=== PATIENT | male | born 1975 | race African-American/Black ===

== ENCOUNTER 2016-09-21 12:01 | Emergency (ER) | payer BC, OTHER ==
[~2016-09-21] VITALS: Ht 177.8 cm; Wt 95.3 kg
[~2016-09-21 12:01] MED LIST: APAP500 PO; ASPIR 8181 MG; ASPIRIN325 PO; BYSTOLIC 5 MG5 M1; BYSTOLIC 5 MG5 M1 PO; FISH OIL500 M2; IMDUR 30 MG TAB30 M1 PO; LIPITOR10 MG PO; NAPROSYN500 MG PO; ONE DAILY FOR1 EACH PO; PLAVIX 75 MG TA75 M1 PO; TOPROL XL25 MG PO; TRAMADOL 50 MG50 MG PO; VITAMIN E400 UNIT PO
[2016-09-21] MEDS ORDERED: TOPROL XL25 MG PO (12:16)
[2016-09-21 12:42] LABS: HEMOGLOBIN 15.1 gm/dL (14.0-18.0); MCH 28.8 pg (26.0-34.0); MCHC 33.5 % (28.0-37.0); PLATELET COUNT 154 thou/uL (150-400); RBC 5.23 mil/uL (4.50-6.00); RDW 13.8 % (10.5-14.5)
[2016-09-21 12:44] LABS: CALCIUM 8.6 mg/dL (8.5-10.1); CREATININE 1.1 mg/dL (0.6-1.3); POTASSIUM 3.7 mmol/L (3.5-5.1)
[2016-09-21 12:49] LABS: ALBUMIN 3.9 g/dL (3.4-5.0); TOTAL BILIRUBIN 1.3 mg/dL (<0.1-1.0)
[2016-09-21 12:57] LABS: MANUAL DIFF YES
[2016-09-21] MEDS ORDERED: BENTYL 20 MG TA20 M1 PO (13:08)
[2016-09-21 13:25] LABS: ABSOLUTE NEUTROPHILS 2.3 thou/uL (1.4-8.2); POIKILOCYTOSIS 1+; TOTAL CELL COUNT 100
[2016-09-21 13:49] LABS: URINE BILIRUBIN NEGATIVE (Negative); URINE BLOOD NEGATIVE (Negative); URINE COLOR YELLOW; URINE GLUCOSE-RANDOM* NEGATIVE (Negative); URINE KETONES NEGATIVE (Negative); URINE LEUKOCYTES-REFLEX NEGATIVE (Negative); URINE PROTEIN (DIPSTICK) NEGATIVE (Negative); URINE UROBILINOGEN 0.2 E.U./dl (0.2-1.0)
[2016-09-21 14:14] VITALS: BP 126/83
== END 2016-09-21 14:21 | disposition home or self-care (01) ==
LOC: ER 12:01
PROVIDERS: Emergency Medicine
DX: R19.7 Diarrhea, unspecified (principal); I10 Essential (primary) hypertension; Z86.79 Personal history of other diseases of the circulatory system; I25.2 Old myocardial infarction; Z88.6 Allergy status to analgesic agent; Z88.1 Allergy status to other antibiotic agents; Z88.5 Allergy status to narcotic agent; F10.99 Alcohol use, unspecified with unspecified alcohol-induced disorder

== ENCOUNTER 2017-03-15 12:50 | Emergency (ER) | payer OTHER ==
[~2017-03-15] VITALS: Ht 185.4 cm; Wt 99.8 kg
[~2017-03-15 12:50] MED LIST changes: +BENTYL 20 MG TA20 M1 PO
[2017-03-15 13:24] LABS: HEMOGLOBIN 15.2 gm/dL (14.0-18.0); MANUAL DIFF YES; MCH 28.8 pg (26.0-34.0); MCHC 33.1 g/dL (28.0-37.0); PLATELET COUNT 164 thou/uL (150-400); RBC 5.29 mil/uL (4.50-6.00); RDW 13.7 % (10.5-14.5)
[2017-03-15 13:35] LABS: CALCIUM 8.9 mg/dL (8.5-10.1); CREATININE 0.9 mg/dL (0.7-1.3); POTASSIUM 3.5 mmol/L (3.5-5.1)
[2017-03-15 13:39] LABS: DIRECT BILIRUBIN 0.2 mg/dL (<0.1-0.3); TOTAL PROTEIN 8.2 g/dL (6.4-8.2)
[2017-03-15 14:02] LABS: URINE BILIRUBIN NEGATIVE (Negative); URINE BLOOD NEGATIVE (Negative); URINE COLOR YELLOW; URINE GLUCOSE-RANDOM* NEGATIVE (Negative); URINE KETONES NEGATIVE (Negative); URINE NITRITE NEGATIVE (Negative); URINE PROTEIN (DIPSTICK) NEGATIVE (Negative); URINE SPECIFIC GRAVITY 1.015 (1.003-1.035); URINE UROBILINOGEN 0.2 E.U./dl (0.2-1.0)
[2017-03-15] MEDS ORDERED: CIPROFLOXACIN500 M1 PO (14:20)
[2017-03-15 14:38] VITALS: BP 123/76
[2017-03-15 14:41] LABS: ABSOLUTE NEUTROPHILS 1.3 thou/uL (1.4-8.2); ATYPICAL LYMPHS 4 %; TOTAL CELL COUNT 100
[2017-03-15 14:42] LABS: LARGE PLATELETS OCCASIONAL
== END 2017-03-15 14:35 | disposition home or self-care (01) ==
LOC: ER 12:50
PROVIDERS: Emergency Medicine
DX: K62.5 Hemorrhage of anus and rectum (principal); R19.7 Diarrhea, unspecified; D72.819 Decreased white blood cell count, unspecified; I25.10 Atherosclerotic heart disease of native coronary artery without angina pectoris; I10 Essential (primary) hypertension; I25.2 Old myocardial infarction; F10.99 Alcohol use, unspecified with unspecified alcohol-induced disorder; Z88.5 Allergy status to narcotic agent; Z88.8 Allergy status to other drugs, medicaments and biological substances

== ENCOUNTER 2017-11-16 08:19 | Emergency (ER) | payer OTHER ==
[~2017-11-16] VITALS: Ht 180.3 cm; Wt 83.9 kg
--- NOTE | ~2017-11-16 | EKG ---
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1975 Requested By: Duong Woods Order Number: [id number] MD: Marty Reinoso Measurements Intervals [place] Rate: 99 P: 50 NC: 148 QRS: -25 QRSD: 106 T: 36 QT: 362 QTc: 465 Interpretive Statements Sinus rhythm Left ventricular hypertrophy Compared to ECG 10/30/2016 05:10:28 Left ventricular hypertrophy now present Right ventricular hypertrophy no longer present Electronically Signed On 11-16-2017 10:25:42 SERVICE CORRESPONDENT by Marty Reinoso [email or web address] <ELECTRONICALLY SIGNED> By: Marty Reinoso MD 11/16/17 1025 D: [id number] 4 Marty Reinoso MD /MARIA ISABEL
[~2017-11-16 08:19] MED LIST changes: +CIPROFLOXACIN500 M1 PO
[2017-11-16] MEDS ORDERED: ALEVE220 MG PO (09:22)
[2017-11-16 09:31] LABS: AMP/METHAMP Negative (Negative); BARBITURATES Negative (Negative); BENZODIAZEPINES Negative (Negative); COCAINE Negative (Negative); METHADONE Negative (Negative); OPIATES Negative (Negative); PCP Negative (Negative)
[2017-11-16 09:48] VITALS: BP 129/81
== END 2017-11-16 09:49 | disposition home or self-care (01) ==
LOC: ER 08:19
PROVIDERS: Emergency Medicine
DX: R68.84 Jaw pain (principal); I10 Essential (primary) hypertension; I25.10 Atherosclerotic heart disease of native coronary artery without angina pectoris; I21.9 Acute myocardial infarction, unspecified; Z88.5 Allergy status to narcotic agent; Z88.8 Allergy status to other drugs, medicaments and biological substances

== ENCOUNTER 2019-01-19 07:06 | Inpatient (IN) | payer OTHER ==
[~2019-01-19] VITALS: Ht 177.8 cm; Wt 105.2 kg
[2019-01-19] VITALS (9 sets, daily range): BP systolic 91–124; BP diastolic 55–83
[~2019-01-19 07:06] MED LIST changes: +ALEVE220 MG PO
[2019-01-19 07:44] LABS: HEMATOCRIT 49.1 % (42.0-52.0); HEMOGLOBIN 16.2 gm/dL (14.0-18.0); MCH 28.9 pg (26.0-34.0); MCHC 32.9 g/dL (28.0-37.0); MCV 87.6 fL (80.0-100.0); PLATELET COUNT 169 thou/uL (150-400); RDW 14.6 % (10.5-14.5); WBC 2.8 thou/uL (4.0-11.0)
[2019-01-19 07:53] LABS: ANION GAP 8 mmol/L (7-16); BUN 12 mg/dL (7-18); CALCIUM 9.4 mg/dL (8.5-10.1); CHLORIDE 105 mmol/L (98-107); CO2 29 mmol/L (21-32); CREATININE 1.1 mg/dL (0.7-1.3); GLUCOSE 133 mg/dL (74-106); POTASSIUM 3.7 mmol/L (3.5-5.1); SODIUM 142 mmol/L (136-145)
[2019-01-19 07:56] LABS: APTT 27.6 Seconds (24.5-32.8); INR 1.1; PROTIME 11.1 Seconds (9.3-11.4)
[2019-01-19 08:03] LABS: ALBUMIN 4.2 g/dL (3.4-5.0); SGOT 40 U/L (15-37); SGPT 71 U/L (30-65); TOTAL BILIRUBIN 0.7 mg/dL (<0.1-1.0); TOTAL PROTEIN 8.7 g/dL (6.4-8.2); TROPONIN-I <0.06 ng/mL (<0.06)
[2019-01-19 08:07] LABS: ABSOLUTE NEUTROPHILS 0.8 thou/uL (1.4-8.2); ATYPICAL LYMPHS 1 %
[2019-01-19 08:09] LABS: ANISOCYTOSIS SLIGHT
[2019-01-19] MEDS ORDERED: ASPIR 8181 MG PO (09:19)
--- NOTE | 2019-01-19 09:22 | EKG ---
[place] [address] [address] 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 : 1975 Requested By: Isela Armando Order Number: [id number] MD: Fracisco Lara Measurements Intervals [place] Rate: 177 P: MS: QRS: -4 QRSD: 96 T: 34 QT: 293 QTc: 503 Interpretive Statements Atrial fibrillation with rapid V-rate Nonspecific ST segment abnormality RSR' in V1 or V2, right VCD or RVH Compared to ECG 11/16/2017 09:05:59 Atrial fibrillation has replaced sinus rhythm Electronically Signed On 01-19-2019 9:22:51 CDT by Fracisco Lara [email or web address] ��������������������������������������������� <ELECTRONICALLY SIGNED> ���������������������������������������� By: Fracisco Lara MD, [facility] ��������������������������������������������� 01/19/19 0922 6 6 Fracisco Lara MD, [facility] /EPI
--- NOTE | 2019-01-19 13:21 | 2DMMODE ---
[facility] [place] [place] [address] 2 D/M-MODE ECHOCARDIOGRAM Name: LEONEL HER Room #: 217-P [facility] IN .#: [id number] ������������� Admission: 01/19/19 ������������� Attend Phys: Compa Carballo, Discharge: ��� ������������� ��� Date of : 73 Date of Service: 01/19/19 1320 �� Report #: [id number] �������� ��������������������������������������������[id number] THIS REPORT FOR: //name// APPROVED REPORT Study performed: 01/19/2019 12:33:01 EXAM: Comprehensive 2D, Doppler, and color-flow Echocardiogram Patient Location: Bedside Status: routine BSA: 2.15 HR: 91 bpm BP: 100/58 mmHg Rhythm: Atrial Fibrillation Other Information Study Quality: Excellent Indications Atrial Fibrillation Hx: NH, CAD, HTN. 2D Dimensions RVDd: 42.18 mm IVSd: 13.26 (7-11mm) LVOT Diam: 19.99 (18-24mm) LVDd: 46.17 mm PWd: 13.21 (7-11mm) Ascending Ao: 33.16 (22-36mm) LVDs: 29.49 (25-40mm) Aortic Root: 28.80 mm Volumes Left Atrial Volume (Systole) Single Plane 4CH: 95.05 mL Single Plane 2CH: 106.63 mL LA ESV Index: 50.00 mL/m2 LV Strain GL Strain(%): 0.00 Aortic Valve AoV Peak Julio Cesar.: 1.41 m/s AO Peak Gr.: 7.96 mmHg LVOT Max P.20 mmHg LVOT Max V: 0.89 m/s REJI Vmax: 1.99 cm2 [facility] [address] [place] [address] 2 D/M-MODE ECHOCARDIOGRAM Name: ARDENLEONEL Ba Room #: 217-P [facility] IN [facility]#: [id number] ������������� Admission: 01/19/19 ������������� Attend Phys: Compa Carballo, Discharge: ��� ������������� ��� Date of : 73 Date of Service: 01/19/19 1320 �� Report #: [id number] �������� ��������������������������������������������[id number] Mitral Valve MV Decel. Time: 97.77 ms MV E Max Julio Cesar.: 0.70 m/s Pulmonary Valve PV Peak Julio Cesar.: 0.69 m/s PV Peak Gr.: 1.90 mmHg Tricuspid Valve TR Peak Julio Cesar.: 1.90 m/s RAP Estimate: 10.00 mmHg TR Peak Gr.: 14.40 mmHg PA Pressure: 24.00 mmHg Left Ventricle The left ventricle is normal size. There is normal LV segmental wall motion. Mild concentric left ventricular hypertrophy. Left ventricular systolic function is normal. LVEF is 50-55%. This study is not technically sufficient to allow evaluation of the LV diastolic function due to atrial fibrillation. Right Ventricle The right ventricle is normal size. The right ventricular systolic function is normal. Atria Left atrium is severely dilated. The right atrium size is normal. Aortic Valve The aortic valve is normal in structure. Trace aortic regurgitation. There is no aortic valvular stenosis. Mitral Valve The mitral valve is normal in structure. Mild to moderate mitral regurgitation. Tricuspid Valve The tricuspid valve is normal in structure. Mild tricuspid regurgitation. Estimated PAP is 20-25mmHg. Pulmonic Valve The pulmonary valve is normal in structure. Mild pulmonic regurgitation. <Conclusion> The left ventricle is normal size. Mild concentric left ventricular hypertrophy. [facility] [place] [address] 2 D/M-MODE ECHOCARDIOGRAM Name: LEONEL HER Room #: 217-P [facility] IN M.R.#: [id number] ������������� Admission: 01/19/19 ������������� Attend Phys: Compa Carballo, Discharge: ��� ������������� ��� Date of : 73 Date of Service: 01/19/19 1320 �� Report #: [id number] �������� ��������������������������������������������[id number] LVEF is 50-55%. This study is not technically sufficient to allow evaluation of the LV diastolic function due to atrial fibrillation. The right ventricle is normal size. Left atrium is severely dilated. Trace aortic regurgitation. Mild to moderate mitral regurgitation. Mild tricuspid regurgitation. Estimated PAP is 20-25mmHg. ��������������������������������������������� <ELECTRONICALLY SIGNED> ���������������������������������������� By: Duong Woods MD, [facility] ��������������������������������������������� 01/19/19 132 132 1320 Duong Woods MD, FACC /INF
--- NOTE | 2019-01-19 20:53 | NUR ---
ASSUMED CARE OF PT APPROX 1200. PT A&OX4, UP AD COCO. PT DENIED PAIN/COMPLAINT. PT VITALS WITHIN NORMAL LIMITS EXCEPT SYSTOLIC BLOOD PRESSURE IN 100'S. PT HAD CARD DRIP RUNNING AT 15MG/HR AND DRIP TITRATED TO 10MG/HR AFTER HEART RATE MAINTAINED BELOW 90 BPM. PT WILL HAVE STRESS TEST IN AM. WILL CONT WITH POC.
--- NOTE | 2019-01-20 03:26 | NUR ---
PT ADMITTED WITH CHEST PAIN, AND AFIB/RVR. 1900, PT ALERT AND ORIENTED, NO COMPLAINS OF CHEST PAINS OR PALPITATIONS. PT CARDIZEM DRIP DISCONTINUE AT ABOUT 0100 DUE TO LOW BP. PT ALSO CONVERTED FROM AFIB TO SR. DENIES ANY KIND OF PAIN, NAUSEA, VOMITING OR DIARRHEA. ALL OTHER ASSESSMENTS DOCUMENTED. WILL CONTINUE TO FOLLOW PLAN OF CARE.
[2019-01-20 04:50] VITALS: BP 109/72
[2019-01-20] MEDS ORDERED: METOPROLOL SUCC50 MG PO (07:43)
[2019-01-20] MEDS ORDERED: CARDIZEM CD 18180 M3 PO (07:44)
[2019-01-20 08:16] VITALS: BP 124/82
[2019-01-20 09:34] VITALS: BP 124/82
[2019-01-20 09:54] VITALS: BP 124/82
--- NOTE | 2019-01-20 10:00 | NUR ---
ASSUMED CARE OF PT AT SHIFT CHANGE. ASSESSMENT CHARTED. MEDS GIVEN BY MARYBETH LAN CHARTED. PT ALERT AND ORIENTED, VSS, NSR ON MONITOR. NO C/O PAIN, DENIES CP AND SOB. PT UP AD COCO INDEPENDENT. DC ORDERS ACKNOWLEDGED AND IMPLEMENTED. DC PAPERWORK DISCUSSED WITH PT BY MARYBETH LAN, THIS NURSE CONFIRMED WITH PT THAT DC PAPERWORK WAS DISCUSSED. PT LEFT UNIT AT APPROX 1000 BY NURSING STAFF. IV REMOVED, TELE REMOVED.
--- NOTE | 2019-01-20 15:18 | EKG ---
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1975 Requested By: Yuridia Lancaster Order Number: [id number] MD: Fracisco Lara Measurements Intervals [place] Rate: 74 P: 55 [place]: 148 QRS: -18 QRSD: 104 T: 16 QT: 394 QTc: 438 Interpretive Statements Sinus rhythm Borderline left axis deviation Compared to ECG 01/19/2019 07:17:50 Atrial fibrillation no longer present ST (T wave) deviation no longer present Electronically Signed On 01-20-2019 15:17:52 CDT by Fracisco Lara [email or web address] ��������������������������������������������� <ELECTRONICALLY SIGNED> ���������������������������������������� By: Fracisco Lara MD, [facility] ��������������������������������������������� 01/20/19 1517 0725 Fracisco Lara MD, [facility] /EPI
== END 2019-01-20 09:59 | disposition home or self-care (01) | DRG 310 ==
LOC: ER 07:06 → 2N 08:21 → EROBS 08:21 → 2N 10:26
PROVIDERS: Emergency Medicine; ADMIT Family Medicine
DX: I48.91 Unspecified atrial fibrillation (principal); I10 Essential (primary) hypertension; I25.10 Atherosclerotic heart disease of native coronary artery without angina pectoris; E78.5 Hyperlipidemia, unspecified; K21.9 Gastro-esophageal reflux disease without esophagitis; Z60.2 Problems related to living alone; F41.9 Anxiety disorder, unspecified; I25.2 Old myocardial infarction; Z88.6 Allergy status to analgesic agent; Z88.8 Allergy status to other drugs, medicaments and biological substances; Z79.82 Long term (current) use of aspirin; Z79.899 Other long term (current) drug therapy; Z82.3 Family history of stroke; Z87.891 Personal history of nicotine dependence
CPT/HCPCS: 10081

== ENCOUNTER → 2019-02-15 | Outpatient (CLI) | payer OTHER ==
[~2019-02-15] MED LIST changes: +ASPIR 8181 MG PO; +CARDIZEM CD 18180 M3 PO; +METOPROLOL SUCC50 MG PO
== END ==
LOC: ULTRA 08:49
DX: R94.5 Abnormal results of liver function studies (principal)

== ENCOUNTER 2019-07-24 11:59 | Emergency (ER) | payer OTHER ==
[~2019-07-24] VITALS: Ht 177.8 cm; Wt 99.8 kg
[2019-07-24 13:39] LABS: ABSOLUTE NEUTROPHILS 1.8 thou/uL (1.4-8.2); EOSINOPHILS 0.3 % (0.0-3.0); HEMATOCRIT 47.3 % (42.0-52.0); HEMOGLOBIN 15.3 gm/dL (14.0-18.0); LYMPHOCYTES 40.9 % (24.0-44.0); MCH 28.7 pg (26.0-34.0); MCHC 32.4 g/dL (28.0-37.0); MCV 88.8 fL (80.0-100.0); MONOCYTES 8.7 % (1.0-8.0); PLATELET COUNT 182 thou/uL (150-400); POLYS 49.1 % (36.0-66.0); RBC 5.33 mil/uL (4.50-6.00); RDW 14.4 % (10.5-14.5); WBC 3.7 thou/uL (4.0-11.0)
[2019-07-24 13:46] LABS: CALCIUM 9.4 mg/dL (8.5-10.1); POTASSIUM 3.7 mmol/L (3.5-5.1)
[2019-07-24 13:46] LABS: URINE BILIRUBIN NEGATIVE (Negative); URINE BLOOD NEGATIVE (Negative); URINE CLARITY CLEAR; URINE COLOR YELLOW; URINE GLUCOSE-RANDOM* NEGATIVE (Negative); URINE KETONES NEGATIVE (Negative); URINE LEUKOCYTES-REFLEX NEGATIVE (Negative); URINE NITRITE-REFLEX NEGATIVE (Negative); URINE PROTEIN (DIPSTICK) NEGATIVE (Negative); URINE SPECIFIC GRAVITY 1.015 (1.005-1.035); URINE UROBILINOGEN 0.2 E.U./dl (0.2-1.0)
[2019-07-24 13:52] LABS: ALBUMIN 4.1 g/dL (3.4-5.0); TOTAL BILIRUBIN 1.3 mg/dL (<0.1-1.0); TOTAL PROTEIN 8.4 g/dL (6.4-8.2)
[2019-07-24 14:20] VITALS: BP 119/75
--- NOTE | 2019-07-25 10:20 | EKG ---
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1975 Requested By: Rochelle Valle Order Number: [id number] MD: Refugio Waters Measurements Intervals [place] Rate: 81 P: 52 [place]: 149 QRS: -29 QRSD: 105 T: 14 QT: 389 QTc: 452 Interpretive Statements Sinus rhythm Probable left atrial enlargement RSR' in V1 or V2, probably normal variant Left ventricular hypertrophy Compared to ECG 01/20/2019 07:25:24 RSR' in V1 or V2 now present Left ventricular hypertrophy now present Electronically Signed On 07-25-2019 10:20:01 ELEVATOR EXAMINER AND ADJUSTER by Refugio Waters [email or web address] <ELECTRONICALLY SIGNED> By: Refugio Watres MD 07/25/19 1020 130 00 Refugio Waters MD /EPI
== END 2019-07-24 14:28 | disposition home or self-care (01) ==
LOC: ER 11:59
PROVIDERS: Physician Assistant
DX: H53.8 Other visual disturbances (principal); I10 Essential (primary) hypertension; I25.10 Atherosclerotic heart disease of native coronary artery without angina pectoris; Z88.5 Allergy status to narcotic agent; Z88.8 Allergy status to other drugs, medicaments and biological substances

== ENCOUNTER → 2020-06-26 | Outpatient (CLI) | payer OTHER | LOC: CAT 11:52 | PROVIDERS: ATTEND Internal Medicine Cardiovascular Disease | DX: Z13.6 Encounter for screening for cardiovascular disorders (principal); I25.10 Atherosclerotic heart disease of native coronary artery without angina pectoris; E78.00 Pure hypercholesterolemia, unspecified ==

== ENCOUNTER → 2020-12-18 | Outpatient (CLI) | payer OTHER | LOC: SJCVCIMAG 07:36 | PROVIDERS: ATTEND Internal Medicine Cardiovascular Disease | DX: I08.8 Other rheumatic multiple valve diseases (principal); I10 Essential (primary) hypertension; I25.10 Atherosclerotic heart disease of native coronary artery without angina pectoris; R06.00 Dyspnea, unspecified; R53.83 Other fatigue; I48.0 Paroxysmal atrial fibrillation; E78.00 Pure hypercholesterolemia, unspecified; Z79.82 Long term (current) use of aspirin; Z79.899 Other long term (current) drug therapy; Z72.89 Other problems related to lifestyle; Z88.8 Allergy status to other drugs, medicaments and biological substances ==

== ENCOUNTER 2021-03-11 21:40 | Emergency (ER) | payer OTHER ==
[~2021-03-11] VITALS: Ht 177.8 cm; Wt 95.3 kg
[2021-03-11 22:28] LABS: ABSOLUTE NEUTROPHILS 0.9 thou/uL (1.4-8.2); BASOPHILS 0.9 % (0.0-2.0); EOSINOPHILS 1.9 % (0.0-3.0); HEMOGLOBIN 14.3 gm/dL (14.0-18.0); LYMPHOCYTES 54.5 % (24.0-44.0); MCH 28.6 pg (26.0-34.0); MCHC 32.6 g/dL (28.0-37.0); MONOCYTES 15.8 % (1.0-8.0); PLATELET COUNT 169 thou/uL (150-400); POLYS 26.9 % (36.0-66.0); RDW 13.9 % (10.5-14.5); WBC 3.3 thou/uL (4.0-11.0)
[2021-03-11 22:38] LABS: ANION GAP 8 mmol/L (7-16); BUN 13 mg/dL (7-18); CALCIUM 8.6 mg/dL (8.5-10.1); CHLORIDE 107 mmol/L (98-107); CO2 29 mmol/L (21-32); CREATININE 1.2 mg/dL (0.7-1.3); GLUCOSE 104 mg/dL (74-106); POTASSIUM 3.7 mmol/L (3.5-5.1); SODIUM 144 mmol/L (136-145)
[2021-03-11 22:47] LABS: ALBUMIN 3.9 g/dL (3.4-5.0); SGOT 34 U/L (15-37); SGPT 62 U/L (16-63); TOTAL BILIRUBIN 1.4 mg/dL (0.2-1.0); TOTAL PROTEIN 8.7 g/dL (6.4-8.2); TROPONIN-I <0.06 ng/mL (<0.06)
[2021-03-12 00:53] VITALS: BP 123/82
--- NOTE | 2021-03-12 07:14 | EKG ---
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1975 Requested By: Edenilson Stout Order Number: [id number] MD: El Gibson Measurements Intervals [place] Rate: 78 P: 53 [place]: 151 QRS: -19 QRSD: 108 T: 39 QT: 382 QTc: 436 Interpretive Statements Sinus rhythm Left atrial enlargement Borderline left axis deviation RSR' in V1 or V2, right VCD or RVH Minimal ST elevation, anterior leads Compared to ECG 07/24/2019 13:01:24 Right ventricular hypertrophy now present ST (T wave) deviation now present Left ventricular hypertrophy no longer present Electronically Signed On 03-12-2021 7:13:56 CDT by El Gibson [email or web address] <ELECTRONICALLY SIGNED> By: El Gibson MD, FAC 03/12/21 0713 49 49 El Gibson MD, [facility] /EPI
== END 2021-03-12 00:54 | disposition home or self-care (01) ==
LOC: ER 21:40
PROVIDERS: Emergency Medicine
DX: M54.9 Dorsalgia, unspecified (principal); I10 Essential (primary) hypertension; I25.10 Atherosclerotic heart disease of native coronary artery without angina pectoris; Z79.82 Long term (current) use of aspirin; Z92.29 Personal history of other drug therapy; Z72.89 Other problems related to lifestyle; Z88.5 Allergy status to narcotic agent